=== PATIENT | male | born 1970 | race Hispanic/Latino ===

== ENCOUNTER 2021-01-31 12:09 | Emergency (ER) | payer OTHER ==
[~2021-01-31] VITALS: Ht 165.1 cm; Wt 79.8 kg
[2021-01-31] MEDS ORDERED: ULTRAM50 MG PO (13:15)
[2021-01-31] MEDS ORDERED: TETANUS/DIPHTHERIA TOX ADULT 0.5 ML SYR IM ONE (13:15)
[2021-01-31] MEDS ORDERED: AUGMENTIN 500-1 EACH PO (13:15)
[2021-01-31] MEDS ORDERED: TETANUS/DIPHTHERIA TOX ADULT 0.5 ML SYR ONE (13:22)
== END 2021-01-31 13:50 | disposition home or self-care (01) ==
LOC: FSED 12:13
DX: S62.633B Displaced fracture of distal phalanx of left middle finger, initial encounter for open fracture (principal); W23.1XXA Caught, crushed, jammed, or pinched between stationary objects, initial encounter; Y92.9 Unspecified place or not applicable
CPT/HCPCS: 90471; 90714; 99283